=== PATIENT | female | born 1995 | race Caucasian/White ===

== ENCOUNTER 2025-05-09 21:23 | Inpatient (IN) | payer OTHER ==
[2025-05-09] MEDS ORDERED: Boostrix 0.5 ML (Tdap) VIAL (>/=7 yrs of age) ONE (21:45)
[2025-05-09] MEDS ORDERED: Ondansetron PF 4 MG/2 ML Vial ONE (21:45)
[2025-05-09 22:02] LABS: #Basophils 0.08 10x3/uL (0.0-0.2); #Eosinophils 0.15 10x3/uL (0.0-0.7); #Monocytes 0.74 10x3/uL (0.11-0.59); #Neutrophils 3.23 10x3/uL (1.40-6.50); %Basophils 1.3 % (0.0-1.0); %Eosinophils 2.5 % (0.0-10.0); %Lymphocytes 30.5 % (21.0-51.0); %Monocytes 12.2 % (0.0-10.0); %Neutrophils 53.2 % (42.0-75.0); Hematocrit 37.0 % (36.0-47.0); Hemoglobin 12.5 g/dL (12.0-16.0); Mean Corpuscular Hemoglobin 30.4 pg (27.0-31.0); Mean Corpuscular Volume 90.0 fL (78.0-98.0); Platelet Count 234 10x3/uL (130-400); Red Blood Cell (RBC) Count 4.11 mill/uL (4.20-5.40); White Blood Cell (WBC) Count 6.07 10x3/uL (4.8-10.8)
[2025-05-09] MEDS: ANTIVENIN CROTALIDAE IVPB SCH (22:13)
[2025-05-09] MEDS: NS IVPB SCH (22:13)
[2025-05-09 22:14] LABS: Fibrinogen 263.0 mg/dL (253-463); INR-International Normal Ratio 1.1; Prothrombin Time 13.8 sec (12.0-14.7)
[2025-05-09 22:15] LABS: PTT 35.2 sec (22.9-36.1)
[2025-05-09] MEDS ORDERED: Acetaminophen 500 MG TAB ONE (22:17)
[2025-05-09] MEDS ORDERED: diphenhydrAMINE 50 MG/ML VIAL ONE (22:17)
[2025-05-09] MEDS ORDERED: Senokot S 8.6-50 MG TAB PO PRN (22:37)
[2025-05-09] MEDS ORDERED: Ondansetron PF 4 MG/2 ML Vial IVP PRN (22:37)
[2025-05-09] MEDS ORDERED: Melatonin 3 MG TAB PO PRN (22:37)
[2025-05-09] MEDS ORDERED: Calcium Carbonate 500 MG ChewTAB PO PRN (22:37)
[2025-05-09 22:44] LABS: ALT (SGPT) 84 U/L (Less than 34); AST (SGOT) 234 U/L (11-34); Albumin 4.1 g/dL (3.1-4.5); Alkaline Phosphatase 64 U/L (40-110); Anion Gap 13 mmol/L (10-20); BUN (Urea Nitrogen) 9 mg/dL (7.0-18.7); Bilirubin, Total 0.4 mg/dL (0.3-1.2); Calc. Creatinine Clearance 0 mL/min (70-130); Calcium 9.0 mg/dL (7.8-10.44); Carbon Dioxide 22 mmol/L (22-29); Chloride 105 mmol/L (98-107); Globulin 3.0 g/dL (2.4-3.5); Glucose 77 mg/dL (70-105); Potassium 3.4 mmol/L (3.5-5.1); Sodium 137 mmol/L (136-145)
[2025-05-10 01:18] VITALS: BMI 26.2
[2025-05-10 04:29] VITALS: TEMP 98
[2025-05-10 05:33] LABS: #Basophils 0.07 10x3/uL (0.0-0.2); #Eosinophils 0.29 10x3/uL (0.0-0.7); #Monocytes 0.76 10x3/uL (0.11-0.59); #Neutrophils 3.78 10x3/uL (1.40-6.50); %Basophils 1.0 % (0.0-1.0); %Eosinophils 4.1 % (0.0-10.0); %Lymphocytes 30.3 % (21.0-51.0); %Monocytes 10.8 % (0.0-10.0); %Neutrophils 53.5 % (42.0-75.0); Hematocrit 37.0 % (36.0-47.0); Hemoglobin 12.1 g/dL (12.0-16.0); Mean Corpuscular Hemoglobin 30.4 pg (27.0-31.0); Mean Corpuscular Volume 93.0 fL (78.0-98.0); Platelet Count 231 10x3/uL (130-400); Red Blood Cell (RBC) Count 3.98 mill/uL (4.20-5.40); White Blood Cell (WBC) Count 7.06 10x3/uL (4.8-10.8)
[2025-05-10 05:54] LABS: ALT (SGPT) 64 U/L (Less than 34); AST (SGOT) 92 U/L (11-34); Albumin 3.7 g/dL (3.1-4.5); Alkaline Phosphatase 57 U/L (40-110); Anion Gap 10 mmol/L (10-20); BUN (Urea Nitrogen) 11 mg/dL (7.0-18.7); Bilirubin, Total 0.3 mg/dL (0.3-1.2); CK (CPK) 82 U/L (29-168); Calc. Creatinine Clearance 97 mL/min (70-130); Calcium 8.4 mg/dL (7.8-10.44); Carbon Dioxide 26 mmol/L (22-29); Chloride 106 mmol/L (98-107); Globulin 2.6 g/dL (2.4-3.5); Glucose 84 mg/dL (70-105); Magnesium 2.0 mg/dL (1.6-2.6); Potassium 4.3 mmol/L (3.5-5.1); Sodium 138 mmol/L (136-145)
[2025-05-10 06:01] LABS: Fibrinogen 230.0 mg/dL (253-463); INR-International Normal Ratio 1.0; PTT 31.8 sec (22.9-36.1); Prothrombin Time 13.7 sec (12.0-14.7)
[2025-05-10] MEDS: Famotidine/PF 20 mg/2ml Vial SLOW IVP SCH (08:28)
[2025-05-10] MEDS: Magnesium 2 GM/50 ML(in water) 2 GM in Premix 1 BAG IVPB SCH (08:28)
[2025-05-10] MEDS: Acetaminophen 325 MG TAB PO PRN (09:35)
[2025-05-10 12:22] LABS: Fibrinogen 263.0 mg/dL (253-463)
[2025-05-10 12:23] LABS: INR-International Normal Ratio 1.1; PTT 32.4 sec (22.9-36.1); Prothrombin Time 13.9 sec (12.0-14.7)
[2025-05-12] MEDS ORDERED: Thiamine 100 MG TAB PO SCH (23:15)
== END 2025-05-10 13:45 | disposition home or self-care (01) | DRG 918 ==
LOC: SUATTDRO 21:23 → ERS 21:23 → IMCU/EMU 23:03
PROVIDERS: ADMIT Internal Medicine; ATTEND Internal Medicine
DX: T63.091A Toxic effect of venom of other snake, accidental (unintentional), initial encounter (principal); F10.10 Alcohol abuse, uncomplicated; F17.210 Nicotine dependence, cigarettes, uncomplicated; E87.6 Hypokalemia; Z79.899 Other long term (current) drug therapy
CPT/HCPCS: 36415; 80053; 82550; 83735; 85025; 85384; 85610; 85730; 90715; 93005; J0841; J1200; J1308; J2270; J2405; J3475; J7050